=== PATIENT | female | born 1955 | race Caucasian/White ===

== ENCOUNTER 2019-03-25 10:49 | Outpatient (CLI) | payer OTHER, SELFPAY | END 2019-04-08 13:12 | disposition home or self-care (01) | LOC: PHYS 10:51 | PROVIDERS: PCP Family Medicine; Visit Provider Family Medicine | DX: R20.0 Anesthesia of skin (principal) | CPT/HCPCS: 95886; 95909 ==

== ENCOUNTER 2020-04-03 11:15 | Outpatient (RCR) | payer OTHER, SELFPAY ==
--- NOTE | 2020-03-06 17:43 | PT.OIE ---
Current Diagnoses Benign paroxysmal vertigo, unspecified ear (03/06/20) Pain in right shoulder (03/06/20) Stiffness of right shoulder, not elsewhere classified (03/06/20) Stiffness of left shoulder, not elsewhere classified (03/06/20) Stiffness of other specified joint, not elsewhere classified (03/06/20) Other spondylosis with radiculopathy, cervical region (03/06/20) Pain in right hand (03/06/20) Visit Care Team Role Provider Type Sumit Loera MD Primary Care Provider Physician Specialty: Family Practice Address: [address] [place] [address], [facility] [place], [address] Email: [email or web address] Daron Mosqueda DO Attending Provider Non-Staff Referring Provider Specialty: Neurology Address: [address] [place] [address], [id number] Email: Physical Therapy Initial Evaluation PT-OP-A Visit Information Start: 03/06/20 16:59 Freq: Status: Active Protocol: Document 03/06/20 11:15 DCW (Rec: 03/06/20 17:42 DCW [id number]) Out-Patient Physical Therapy Visit Information Visit Information Visit Type Initial Evaluation Visit Start Time 11:15 Visit Stop Time 12:00 Total Visit Minutes 45 Visit Number 1 Number of PARTS FACILITATOR Visits 0 Evaluation Information Evaluation Date 03/06/20 PT-OP-B Current Condition Start: 03/06/20 16:59 Freq: Status: Active Protocol: Document 03/06/20 11:15 DCW (Rec: 03/06/20 17:42 DCW [id number]) Current Condition History of Current Condition Onset Date 18 months Current Complaints neck pain and stiffness, radicular arm pain, dizziness History of Current Condition Pt is a 64 year old female presenting with an 18 month history of worsening arm pain, L>R, neck stiffness, and a long-standing history of vertigo. Pt reports that her right hand began to hurt 18 months ago, and she though she had injured her finger, but it is now sore in both shoulders and her neck, limiting her participation in daily activities. She has a lot of difficulty attempting to open jars, and performing any general neck range of motion. Pt notes constant numbness and tingling in her middle three left fingers, and spasming in her left forearm. Pt also admits her dizziness is associated with positional changes, and prevents her from bending down and cleaning under furniture. Prior Treatments and Tests Per pt's visit notes from at [facility], pt's C-spine MRI from 04/15/19 was reviewed, and showed multiple levels of degenerative changes...the C6-7 level is most symptomatic as her distribution of pain matches the C6-7 level. PT-OP-C Subjective Start: 03/06/20 16:59 Freq: Status: Active Protocol: Document 03/06/20 11:15 DCW (Rec: 03/06/20 17:42 DCW [id number]) OP-PT Subjective Patient Comments Patient Comments I had to order something from [employer] to open jars, because it is just painful and I can't laundry tub maker anything. Patient Questionnaires Neck Disability Index NDI Score = 24% Quick Dash- Upper Extremity Quick Dash UE Score 47.73% Quick Dash UE Impairment 40 to 59% Impaired (Score 40- 59) OP-PT Pain Assessment Pain Assessment Grid Paper Pain Assessment Grid Completed Yes Location Left Lateral Hand Intensity 4 Scale Used Numeric (0 - 10) Left Lower Arm Intensity 3 Scale Used Numeric (0 - 10) Left Posterior Neck Intensity 4 Scale Used Numeric (0 - 10) PT-OP-F Manual Assessment Start: 03/06/20 16:59 Freq: Status: Active Protocol: Document 03/06/20 11:15 DCW (Rec: 03/06/20 17:42 DCW [id number]) Manual Assessments Soft Tissue Assessment Soft Tissue Mobility Assessment Moderate tone and tenderness to palpation 3/4: wincing and withdraw - right suboccipitals , bilateral upper trap, bilateral cervical paraspinals , left brachioradialis, bilateral rhomboids. Joint Mobility Assessment Joint Mobility Assessment Degeneratige changes through the cervical spine have lead to decreased ROM and limited vertebral mobility PT-OP-K Range of Motion Start: 03/06/20 16:59 Freq: Status: Active Protocol: Document 03/06/20 11:15 DCW (Rec: 03/06/20 17:42 DCW [id number]) Cervical Spine Range of Motion Cervical Spine Active Degrees Testing Position Sitting Flexion 65 Extension 45 Rotation Left 60 Rotation Right 55 Lateral Flexion Left 20 Lateral Flexion Right 35 ROM Limitations Soft Tissue Tightness,Bony Restriction,Muscle Tone,Pain PT-OP-L Special Tests Start: 03/06/20 16:59 Freq: Status: Active Protocol: Document 03/06/20 11:15 DCW (Rec: 03/06/20 17:42 DCW [id number]) Special Tests Cervical Spine Special Tests Spurling's Test Test Results Negative Traction Test Results Negative Slump Test Results Negative Foraminal Compression Test Results Positive bilaterally PT-OP-M Strength Start: 03/06/20 16:59 Freq: Status: Active Protocol: Document 03/06/20 11:15 DCW (Rec: 03/06/20 17:42 DCW [id number]) Shoulder Strength Shoulder Manual Muscle Testing Right Flexion 4+ Good+ Abduction (C5) 4- Good- External Rotation 5 Normal Internal Rotation 5 Normal Left Flexion 4+ Good+ Abduction (C5) 3+ Fair+ External Rotation 4+ Good+ Internal Rotation 4+ Good+ Comments Limited secondary to pain Hand Mail Handler Assistant/Pinch Strength Hand Strength Right Mail Handler Assistant (lbs) 55.67 Comments Three-trial average (47, 60, 60) Left Mail Handler Assistant (lbs) 53.33 Comments Three-trial average (55, 50, 55) PT-OP-O Vestibular Start: 03/06/20 16:59 Freq: Status: Active Protocol: Document 03/06/20 11:15 DCW (Rec: 03/06/20 17:42 DCW [id number]) Vestibular Assessment Comments Vestibular Comments Not tested at this time PT-OP-T Assessment and Plan Start: 03/06/20 16:59 Freq: Status: Active Protocol: Document 03/06/20 11:15 DCW (Rec: 03/06/20 17:42 DCW [id number]) Physical Therapy Assessment Rehab Potential Rehabilitation Potential Good Evaluation Complexity Number of Personal Factors/Comorbidities 1-2 Number of Body Systems Impaired 3 Clinical Presentation at Evaluation Unstable Impairments Impairments Activity Tolerance,Functional Activities,Functional Mobility ,Pain,Posture,ROM,Soft Tissue Mobility,Strength,Tone Goals Four Impairment Pt unable to clean under chair due to positional vertigo Due Diligence Coordinator Goal (LTG) Pt to exhibit no symptoms of positional vertigo over a period of three weeks. LTG Duration 05/07/20 Three Impairment Pt displays decreased cervical ROM which limits her ability to turn head when driving [facility] Goal (LTG) Pt to increase cervical rotation to 65? bilaterally and lateral flexion to 45? bilaterally LTG Duration 05/07/20 Two Impairment Pt unable to open jars due to pain and laundry tub maker weakness Due Diligence Coordinator Goal (LTG) Pt to report ability to open jars at home with no instances of increased pain. 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 Additionally, per pt's subjective complaints , pt is suffering from positional vertigo, which will limit her ability to participate fully in cervical rehab. Pt's symptoms are suggestive of BPPV, however there was not sufficient time during her evaluation today for vestibular testing. Pt should benefit from further testing and treatment of potential vestibular dysfunction to assist improving her results from cervical therapy. Pt displays increased tone and tenderness along her cervical paraspinals, rhomboids, and upper traps, suggesting protective spasming secondary to her degeneration. Pt displays some decreased shoulder strength bilaterally and limitations in cervical ROM. Pt should benefit from skilled therapy focusing on decreasing tone, improving mobility, pain-control modalities, and vestibular testing/treatment to decrease positional vertigo. Physical Therapy Plan Frequency and Duration Frequency of Treatment 2x/Week Duration of Treatment 2 months Plan of Care Start Date 03/06/20 Plan of Care End Date 05/07/20 Therapeutic Interventions Therapeutic Interventions Canalithic Repositioning,Home Exercise Program,Joint Mobilizations,Manual Therapy, Neuromuscular Re-education, Patient/Caregiver Education, Self-Care/Home Management,Soft Tissue Mobilization, Therapeutic Activities, Therapeutic Exercises, Vestibular Rehabilitation Modalities Cold Pack/Ice Massage,Electric Stimulation,Hot Packs, Ultrasound Next Visit Focus/Plan Next Note Type Treatment Note Next Visit Plan Cervical ROM, vestibular testing, CRM as needed, strengthening, STM
--- NOTE | 2020-03-06 17:44 | PT.OPPOC ---
Physical, Occupational & Speech Therapy At [facility] Current Diagnoses Benign paroxysmal vertigo, unspecified ear (03/06/20) Pain in right shoulder (03/06/20) Stiffness of right shoulder, not elsewhere classified (03/06/20) Stiffness of left shoulder, not elsewhere classified (03/06/20) Stiffness of other specified joint, not elsewhere classified (03/06/20) Other spondylosis with radiculopathy, cervical region (03/06/20) Pain in right hand (03/06/20) Visit Care Team Role Provider Type Sumit Loera MD Primary Care Provider Physician Specialty: Family Practice Address: [address] [place] [address] [place], [address] Email: [email or web address] Daron Mosqueda DO Attending Provider Non-Staff Referring Provider Specialty: Neurology Address: [address] [place] [address], [address] Email: Plan Of Care PT-OP-T Assessment and Plan Start: 03/06/20 16:59 Freq: Status: Active Protocol: Document 03/06/20 11:15 DCW (Rec: 03/06/20 17:42 DCW [id number]) Physical Therapy Assessment Rehab Potential Rehabilitation Potential Good Evaluation Complexity Number of Personal Factors/Comorbidities 1-2 Number of Body Systems Impaired 3 Clinical Presentation at Evaluation Unstable Impairments Impairments Activity Tolerance,Functional Activities,Functional Mobility ,Pain,Posture,ROM,Soft Tissue Mobility,Strength,Tone Goals Four Impairment Pt unable to clean under chair due to positional vertigo Senior Living Goal (LTG) Pt to exhibit no symptoms of positional vertigo over a period of three weeks. LTG Duration 05/07/20 Three Impairment Pt displays decreased cervical ROM which limits head turns when driving Senior Living Goal (LTG) Pt to increase cervical rotation to 65? bilaterally and lateral flexion to 45? bilaterally LTG Duration 05/07/20 Two Impairment Pt unable to open jars due to pain and terrazzo mechanic helper weakness Stockkeeper Goal (LTG) Pt to report ability to open jars at home with no instances of increased pain. 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 Additionally, per pt's subjective complaints , pt is suffering from positional vertigo, which will limit her ability to participate fully in cervical rehab. Pt's symptoms are suggestive of BPPV, however there was not sufficient time during her evaluation today for vestibular testing. Pt should benefit from further testing and treatment of potential vestibular dysfunction to assist improving her results from cervical therapy. Pt displays increased tone and tenderness along her cervical paraspinals, rhomboids, and upper traps, suggesting protective spasming secondary to her degeneration. Pt displays some decreased shoulder strength bilaterally and limitations in cervical ROM. Pt should benefit from skilled therapy focusing on decreasing tone, improving mobility, pain-control modalities, and vestibular testing/treatment to decrease positional vertigo. Physical Therapy Plan Frequency and Duration Frequency of Treatment 2x/Week Duration of Treatment 2 months Plan of Care Start Date 03/06/20 Plan of Care End Date 05/07/20 Therapeutic Interventions Therapeutic Interventions Canalithic Repositioning,Home Exercise Program,Joint Mobilizations,Manual Therapy, Neuromuscular Re-education, Patient/Caregiver Education, Self-Care/Home Management,Soft Tissue Mobilization, Therapeutic Activities, Therapeutic Exercises, Vestibular Rehabilitation Modalities Cold Pack/Ice Massage,Electric Stimulation,Hot Packs, Ultrasound Next Visit Focus/Plan Next Note Type Treatment Note Next Visit Plan Cervical ROM, vestibular testing, CRM as needed, strengthening, STM Plan of Care Dates Plan of Care Start Date 03/06/20 Plan of Care End Date 05/07/20 Electronically Signed by: Trae Light, PT 03/06/20 1157 Please Sign and Return: I have reviewed this Plan of Care and certify that the skilled therapy services above are required to meet the patient?s needs. Physician Signature Date Printed Name and Credentials Clinical Instructor Signature Printed Name and Credentials
--- NOTE | 2020-03-08 16:20 | PT.OTN ---
Current Diagnoses Benign paroxysmal vertigo, unspecified ear (03/08/20) Pain in right shoulder (03/08/20) Stiffness of right shoulder, not elsewhere classified (03/08/20) Stiffness of left shoulder, not elsewhere classified (03/08/20) Stiffness of other specified joint, not elsewhere classified (03/08/20) Other spondylosis with radiculopathy, cervical region (03/08/20) Pain in right hand (03/08/20) Physical Therapy Treatment Note PT-OP-A Visit Information Start: 03/06/20 16:59 Freq: Status: Active Protocol: Document 03/08/20 16:03 AW (Rec: 03/08/20 16:20 AW [id number]) Out-Patient Physical Therapy Visit Information Visit Information Visit Type Treatment Note Visit Start Time 15:15 Visit Stop Time 16:00 Total Visit Minutes 45 Visit Number 2/3 Number of PATIENT OBSERVATION ASSISTANT Visits 0 Evaluation Information Evaluation Date 03/06/20 PT-OP-B Current Condition Start: 03/06/20 16:59 Freq: Status: Active Protocol: Document 03/06/20 11:15 DCW (Rec: 03/06/20 17:42 DCW [id number]) Current Condition History of Current Condition Onset Date 18 months Current Complaints neck pain and stiffness, radicular arm pain, dizziness History of Current Condition Pt is a 64 year old female presenting with an 18 month history of worsening arm pain, L>R, neck stiffness, and a long-standing history of vertigo. Pt reports that her right hand began to hurt 18 months ago, and she though she had injured her finger, but it is now sore in both shoulders and her neck, limiting her participation in daily activities. She has a lot of difficulty attempting to open jars, and performing any general neck range of motion. Pt notes constant numbness and tingling in her middle three left fingers, and spasming in her left forearm. Pt also admits her dizziness is associated with positional changes, and prevents her from bending down and cleaning under furniture. Prior Treatments and Tests Per pt's visit notes from at [facility], pt's C-spine MRI from 04/15/19 was reviewed, and showed multiple levels of degenerative changes...the C6-7 level is most symptomatic as her distribution of pain matches the C6-7 level. PT-OP-C Subjective Start: 03/06/20 16:59 Freq: Status: Active Protocol: Document 03/08/20 16:03 AW (Rec: 03/08/20 16:20 AW [id number]) OP-PT Subjective Patient Comments Patient Comments I'm feeling less tense today. It's one of my better days. PT-OP-F Manual Assessment Start: 03/06/20 16:59 Freq: Status: Active Protocol: Document 03/06/20 11:15 DCW (Rec: 03/06/20 17:42 DCW [id number]) Manual Assessments Soft Tissue Assessment Soft Tissue Mobility Assessment Moderate tone and tenderness to palpation 3/4: wincing and withdraw - right suboccipitals , bilateral upper trap, bilateral cervical paraspinals , left brachioradialis, bilateral rhomboids. Joint Mobility Assessment Joint Mobility Assessment Degeneratige changes through the cervical spine have lead to decreased ROM and limited vertebral mobility PT-OP-K Range of Motion Start: 03/06/20 16:59 Freq: Status: Active Protocol: Document 03/06/20 11:15 DCW (Rec: 03/06/20 17:42 DCW [id number]) Cervical Spine Range of Motion Cervical Spine Active Degrees Testing Position Sitting Flexion 65 Extension 45 Rotation Left 60 Rotation Right 55 Lateral Flexion Left 20 Lateral Flexion Right 35 ROM Limitations Soft Tissue Tightness,Bony Restriction,Muscle Tone,Pain PT-OP-L Special Tests Start: 03/06/20 16:59 Freq: Status: Active Protocol: Document 03/06/20 11:15 DCW (Rec: 03/06/20 17:42 DCW [id number]) Special Tests Cervical Spine Special Tests Spurling's Test Test Results Negative Traction Test Results Negative Slump Test Results Negative Foraminal Compression Test Results Positive bilaterally PT-OP-M Strength Start: 03/06/20 16:59 Freq: Status: Active Protocol: Document 03/06/20 11:15 DCW (Rec: 03/06/20 17:42 DCW [id number]) Shoulder Strength Shoulder Manual Muscle Testing Right Flexion 4+ Good+ Abduction (C5) 4- Good- External Rotation 5 Normal Internal Rotation 5 Normal Left Flexion 4+ Good+ Abduction (C5) 3+ Fair+ External Rotation 4+ Good+ Internal Rotation 4+ Good+ Comments Limited secondary to pain Hand Steward/Stewardess Tourist Class/Pinch Strength Hand Strength Right Steward/Stewardess Tourist Class (lbs) 55.67 Comments Three-trial average (47, 60, 60) Left Steward/Stewardess Tourist Class (lbs) 53.33 Comments Three-trial average (55, 50, 55) PT-OP-O Vestibular Start: 03/06/20 16:59 Freq: Status: Active Protocol: Document 03/06/20 11:15 DCW (Rec: 03/06/20 17:42 DCW [id number]) Vestibular Assessment Comments Vestibular Comments Not tested at this time PT-OP-Q Treatments Start: 03/06/20 16:59 Freq: Status: Active Protocol: Document 03/08/20 16:03 AW (Rec: 03/08/20 16:20 AW [id number]) Therapeutic Exercises Sitting Exercises iso lat dorsi Sitting Exercise Name iso lat dorsi Side bilateral Equipment Used K-MOTION Interactiveing poles Reps/Minutes 10 x 2 Comments with 3 SH, cues for elbows tucked to trunk scapular retraction Sitting Exercise Name scapular retraction Side bilateral Reps/Minutes x12 Comments pt requires tactile cues and modeling, VC for soft shoulders cervical retraction Sitting Exercise Name cervical retraction Reps/Minutes x12 Comments cues for soft shoulders cervical AROM Sitting Exercise Name all planes Comments limited flexion due to dizziness UT stretch Sitting Exercise Name UT stretch Side bilateral Resistance manual, self Reps/Minutes 30 SH x 4 Manual Therapy Treatment Soft Tissue Mobilization cervical Body Location paraspinals, subocc, UT, rhomboids Mobilization Type Myofascial Release,Sustained Pressure Intensity/Depth Moderate Body Position Hooklying Comments With active cervical rotation, over pressure, and contract/ relax. Plus manual traction. PT-OP-T Assessment and Plan Start: 03/06/20 16:59 Freq: Status: Active Protocol: Document 03/08/20 16:03 AW (Rec: 03/08/20 16:20 AW [id number]) Physical Therapy Assessment Impairments Impairments Activity Tolerance,Functional Activities,Functional Mobility ,Pain,Posture,ROM,Soft Tissue Mobility,Strength,Tone Goals Four Impairment Pt unable to clean under chair due to positional vertigo Venetian Blind Tape Cutter Goal (LTG) Pt to exhibit no symptoms of positional vertigo over a period of three weeks. LTG Duration 05/07/20 Three Impairment Pt displays decreased cervical ROM which limits head turns when driving [facility] Goal (LTG) Pt to increase cervical rotation to 65? bilaterally and lateral flexion to 45? bilaterally LTG Duration 05/07/20 Two Impairment Pt unable to open jars due to pain and grazing aide weakness [facility]entiary Goal (LTG) Pt to report ability to open jars at home with no instances of increased pain. LTG Duration 05/07/20 One Impairment Pt does not have an appropriate home exercise program Short Term Goal (STG) Pt to be independent and compliant with an appropriate HEP STG Duration 04/06/20 Assessment Summary Assessment Pt tolerated manual therapy and exercise today without increase in baseline radicular symptoms. Pt has dizziness with active cervical flexion and PT notes left-beating nystagmus. Symptoms cleared in <30 seconds. Physical Therapy Plan Frequency and Duration Frequency of Treatment 2x/Week Duration of Treatment 2 months Plan of Care Start Date 03/06/20 Plan of Care End Date 05/07/20 Therapeutic Interventions Therapeutic Interventions Canalithic Repositioning,Home Exercise Program,Joint Mobilizations,Manual Therapy, Neuromuscular Re-education, Patient/Caregiver Education, Self-Care/Home Management,Soft Tissue Mobilization, Therapeutic Activities, Therapeutic Exercises, Vestibular Rehabilitation Modalities Cold Pack/Ice Massage,Electric Stimulation,Hot Packs, Ultrasound Next Visit Focus/Plan Next Note Type Treatment Note Next Visit Plan Cervical ROM, vestibular testing, CRM as needed, strengthening, STM
--- NOTE | 2020-03-15 17:06 | PT.OTN ---
Current Diagnoses Benign paroxysmal vertigo, unspecified ear (03/15/20) Pain in right shoulder (03/15/20) Stiffness of right shoulder, not elsewhere classified (03/15/20) Stiffness of left shoulder, not elsewhere classified (03/15/20) Stiffness of other specified joint, not elsewhere classified (03/15/20) Other spondylosis with radiculopathy, cervical region (03/15/20) Pain in right hand (03/15/20) Physical Therapy Treatment Note PT-OP-A Visit Information Start: 03/06/20 16:59 Freq: Status: Active Protocol: Document 03/15/20 11:20 SAK (Rec: 03/15/20 13:12 SAK [id number]) Out-Patient Physical Therapy Visit Information Visit Information Visit Type Treatment Note Visit Start Time 11:15 Visit Stop Time 12:00 Total Visit Minutes 45 Visit Number 3/3 Number of DIRECTOR OF RETAIL MERCHANDISING Visits 0 Evaluation Information Evaluation Date 03/06/20 PT-OP-B Current Condition Start: 03/06/20 16:59 Freq: Status: Active Protocol: Document 03/06/20 11:15 DCW (Rec: 03/06/20 17:42 DCW [id number]) Current Condition History of Current Condition Onset Date 18 months Current Complaints neck pain and stiffness, radicular arm pain, dizziness History of Current Condition Pt is a 64 year old female presenting with an 18 month history of worsening arm pain, L>R, neck stiffness, and a long-standing history of vertigo. Pt reports that her right hand began to hurt 18 months ago, and she though she had injured her finger, but it is now sore in both shoulders and her neck, limiting her participation in daily activities. She has a lot of difficulty attempting to open jars, and performing any general neck range of motion. Pt notes constant numbness and tingling in her middle three left fingers, and spasming in her left forearm. Pt also admits her dizziness is associated with positional changes, and prevents her from bending down and cleaning under furniture. Prior Treatments and Tests Per pt's visit notes from at [facility], pt's C-spine MRI from 04/15/19 was reviewed, and showed multiple levels of degenerative changes...the C6-7 level is most symptomatic as her distribution of pain matches the C6-7 level. PT-OP-C Subjective Start: 03/06/20 16:59 Freq: Status: Active Protocol: Document 03/15/20 11:20 SAK (Rec: 03/15/20 13:12 SAK [id number]) OP-PT Subjective Patient Comments Patient Comments Low compliance with HEP due to holidays, significant other home. Again having one of her better days. PT-OP-F Manual Assessment Start: 03/06/20 16:59 Freq: Status: Active Protocol: Document 03/06/20 11:15 DCW (Rec: 03/06/20 17:42 DCW [id number]) Manual Assessments Soft Tissue Assessment Soft Tissue Mobility Assessment Moderate tone and tenderness to palpation 3/4: wincing and withdraw - right suboccipitals , bilateral upper trap, bilateral cervical paraspinals , left brachioradialis, bilateral rhomboids. Joint Mobility Assessment Joint Mobility Assessment Degeneratige changes through the cervical spine have lead to decreased ROM and limited vertebral mobility PT-OP-K Range of Motion Start: 03/06/20 16:59 Freq: Status: Active Protocol: Document 03/06/20 11:15 DCW (Rec: 03/06/20 17:42 DCW [id number]) Cervical Spine Range of Motion Cervical Spine Active Degrees Testing Position Sitting Flexion 65 Extension 45 Rotation Left 60 Rotation Right 55 Lateral Flexion Left 20 Lateral Flexion Right 35 ROM Limitations Soft Tissue Tightness,Bony Restriction,Muscle Tone,Pain PT-OP-L Special Tests Start: 03/06/20 16:59 Freq: Status: Active Protocol: Document 03/06/20 11:15 DCW (Rec: 03/06/20 17:42 DCW [id number]) Special Tests Cervical Spine Special Tests Spurling's Test Test Results Negative Traction Test Results Negative Slump Test Results Negative Foraminal Compression Test Results Positive bilaterally PT-OP-M Strength Start: 03/06/20 16:59 Freq: Status: Active Protocol: Document 03/06/20 11:15 DCW (Rec: 03/06/20 17:42 DCW [id number]) Shoulder Strength Shoulder Manual Muscle Testing Right Flexion 4+ Good+ Abduction (C5) 4- Good- External Rotation 5 Normal Internal Rotation 5 Normal Left Flexion 4+ Good+ Abduction (C5) 3+ Fair+ External Rotation 4+ Good+ Internal Rotation 4+ Good+ Comments Limited secondary to pain Hand Packing Floor Worker/Pinch Strength Hand Strength Right Packing Floor Worker (lbs) 55.67 Comments Three-trial average (47, 60, 60) Left Packing Floor Worker (lbs) 53.33 Comments Three-trial average (55, 50, 55) PT-OP-O Vestibular Start: 03/06/20 16:59 Freq: Status: Active Protocol: Document 03/06/20 11:15 DCW (Rec: 03/06/20 17:42 DCW [id number]) Vestibular Assessment Comments Vestibular Comments Not tested at this time PT-OP-Q Treatments Start: 03/06/20 16:59 Freq: Status: Active Protocol: Document 03/15/20 11:20 SAK (Rec: 03/15/20 13:12 SAK [id number]) Therapeutic Exercises Supine Exercises pec stretch Reps/Minutes 2x30 Sitting Exercises scapular retraction Sitting Exercise Name scapular retraction Side bilateral Reps/Minutes x12 Comments pt requires tactile cues and modeling, VC for soft shoulders cervical retraction Sitting Exercise Name cervical retraction Reps/Minutes x12 Comments cues for soft shoulders cervical AROM Sitting Exercise Name all planes Comments limited flexion due to dizziness UT stretch Sitting Exercise Name UT stretch Side bilateral Resistance manual, self Reps/Minutes 30 SH x 2 Manual Therapy Treatment Soft Tissue Mobilization cervical Body Location paraspinals, subocc, UT, rhomboids Mobilization Type Myofascial Release,Sustained Pressure Intensity/Depth Moderate Body Position Hooklying and sidelying Comments With active cervical rotation, over pressure, and contract/ relax. Plus manual traction. PT-OP-T Assessment and Plan Start: 03/06/20 16:59 Freq: Status: Active Protocol: Document 03/15/20 11:20 SAK (Rec: 03/15/20 17:06 [facility] [id number]) Physical Therapy Assessment Impairments Impairments Activity Tolerance,Functional Activities,Functional Mobility ,Pain,Posture,ROM,Soft Tissue Mobility,Strength,Tone Goals Four Impairment Pt unable to clean under chair due to positional vertigo Correction Goal (LTG) Pt to exhibit no symptoms of positional vertigo over a period of three weeks. LTG Duration 05/07/20 Three Impairment Pt displays decreased cervical ROM which limits head turns when driving Topography Technician Goal (LTG) Pt to increase cervical rotation to 65? bilaterally and lateral flexion to 45? bilaterally LTG Duration 05/07/20 Two Impairment Pt unable to open jars due to pain and cable respooler weakness Topography Technician Goal (LTG) Pt to report ability to open jars at home with no instances of increased pain. LTG Duration 05/07/20 One Impairment Pt does not have an appropriate home exercise program Short Term Goal (STG) Pt to be independent and compliant with an appropriate HEP STG Duration 04/06/20 Assessment Summary Assessment Good tolerance for ther ex with verbal and manual cues for correct performance. Decreased pain and muscle tension with manual techniques . Overall pain improved, vertigo symptoms continue especially with supine to sit today. Physical Therapy Plan Frequency and Duration Frequency of Treatment 2x/Week Duration of Treatment 2 months Plan of Care Start Date 03/06/20 Plan of Care End Date 05/07/20 Therapeutic Interventions Therapeutic Interventions Canalithic Repositioning,Home Exercise Program,Joint Mobilizations,Manual Therapy, Neuromuscular Re-education, Patient/Caregiver Education, Self-Care/Home Management,Soft Tissue Mobilization, Therapeutic Activities, Therapeutic Exercises, Vestibular Rehabilitation Modalities Cold Pack/Ice Massage,Electric Stimulation,Hot Packs, Ultrasound Next Visit Focus/Plan Next Note Type Treatment Note Next Visit Plan Cervical ROM, vestibular testing, CRM as needed, strengthening, STM
--- NOTE | 2020-03-29 11:57 | PT.OTN ---
Current Diagnoses Benign paroxysmal vertigo, unspecified ear (03/29/20) Pain in right shoulder (03/29/20) Stiffness of right shoulder, not elsewhere classified (03/29/20) Stiffness of left shoulder, not elsewhere classified (03/29/20) Stiffness of other specified joint, not elsewhere classified (03/29/20) Other spondylosis with radiculopathy, cervical region (03/29/20) Pain in right hand (03/29/20) Physical Therapy Treatment Note PT-OP-A Visit Information Start: 03/06/20 16:59 Freq: Status: Active Protocol: Document 03/29/20 11:15 DCW (Rec: 03/29/20 11:57 DCW [id number]) Out-Patient Physical Therapy Visit Information Visit Information Visit Type Treatment Note Visit Start Time 11:15 Visit Stop Time 12:00 Total Visit Minutes 45 Visit Number 4/5 Number of STEEL CRANE OPERATOR Visits 0 Evaluation Information Evaluation Date 03/06/20 PT-OP-B Current Condition Start: 03/06/20 16:59 Freq: Status: Active Protocol: Document 03/06/20 11:15 DCW (Rec: 03/06/20 17:42 DCW [id number]) Current Condition History of Current Condition Onset Date 18 months Current Complaints neck pain and stiffness, radicular arm pain, dizziness History of Current Condition Pt is a 64 year old female presenting with an 18 month history of worsening arm pain, L>R, neck stiffness, and a long-standing history of vertigo. Pt reports that her right hand began to hurt 18 months ago, and she though she had injured her finger, but it is now sore in both shoulders and her neck, limiting her participation in daily activities. She has a lot of difficulty attempting to open jars, and performing any general neck range of motion. Pt notes constant numbness and tingling in her middle three left fingers, and spasming in her left forearm. Pt also admits her dizziness is associated with positional changes, and prevents her from bending down and cleaning under furniture. Prior Treatments and Tests Per pt's visit notes from at [facility], pt's C-spine MRI from 04/15/19 was reviewed, and showed multiple levels of degenerative changes...the C6-7 level is most symptomatic as her distribution of pain matches the C6-7 level. PT-OP-C Subjective Start: 03/06/20 16:59 Freq: Status: Active Protocol: Document 03/29/20 11:15 DCW (Rec: 03/29/20 11:57 DCW [id number]) OP-PT Subjective Patient Comments Patient Comments Pt reports she has been feeling better recently, and has been doing well with her HEP. PT-OP-F Manual Assessment Start: 03/06/20 16:59 Freq: Status: Active Protocol: Document 03/06/20 11:15 DCW (Rec: 03/06/20 17:42 DCW [id number]) Manual Assessments Soft Tissue Assessment Soft Tissue Mobility Assessment Moderate tone and tenderness to palpation 3/4: wincing and withdraw - right suboccipitals , bilateral upper trap, bilateral cervical paraspinals , left brachioradialis, bilateral rhomboids. Joint Mobility Assessment Joint Mobility Assessment Degeneratige changes through the cervical spine have lead to decreased ROM and limited vertebral mobility PT-OP-K Range of Motion Start: 03/06/20 16:59 Freq: Status: Active Protocol: Document 03/06/20 11:15 DCW (Rec: 03/06/20 17:42 DCW [id number]) Cervical Spine Range of Motion Cervical Spine Active Degrees Testing Position Sitting Flexion 65 Extension 45 Rotation Left 60 Rotation Right 55 Lateral Flexion Left 20 Lateral Flexion Right 35 ROM Limitations Soft Tissue Tightness,Bony Restriction,Muscle Tone,Pain PT-OP-L Special Tests Start: 03/06/20 16:59 Freq: Status: Active Protocol: Document 03/06/20 11:15 DCW (Rec: 03/06/20 17:42 DCW [id number]) Special Tests Cervical Spine Special Tests Spurling's Test Test Results Negative Traction Test Results Negative Slump Test Results Negative Foraminal Compression Test Results Positive bilaterally PT-OP-M Strength Start: 03/06/20 16:59 Freq: Status: Active Protocol: Document 03/06/20 11:15 DCW (Rec: 03/06/20 17:42 DCW [id number]) Shoulder Strength Shoulder Manual Muscle Testing Right Flexion 4+ Good+ Abduction (C5) 4- Good- External Rotation 5 Normal Internal Rotation 5 Normal Left Flexion 4+ Good+ Abduction (C5) 3+ Fair+ External Rotation 4+ Good+ Internal Rotation 4+ Good+ Comments Limited secondary to pain Hand Supervisor Grading/Pinch Strength Hand Strength Right Supervisor Grading (lbs) 55.67 Comments Three-trial average (47, 60, 60) Left Supervisor Grading (lbs) 53.33 Comments Three-trial average (55, 50, 55) PT-OP-O Vestibular Start: 03/06/20 16:59 Freq: Status: Active Protocol: Document 03/29/20 11:15 DCW (Rec: 03/29/20 11:25 DCW [id number]) Vestibular Assessment Positional Testing [place]-Hallpike Negative Left,Negative Right Rolling Test Negative Left,Negative Right PT-OP-Q Treatments Start: 03/06/20 16:59 Freq: Status: Active Protocol: Document 03/29/20 11:15 DCW (Rec: 03/29/20 11:57 DCW [id number]) Therapeutic Exercises Sitting Exercises scapular retraction Sitting Exercise Name scapular retraction Side bilateral Reps/Minutes x12 Comments pt requires tactile cues and modeling, VC for soft shoulders cervical retraction Sitting Exercise Name cervical retraction Reps/Minutes x12 Comments cues for soft shoulders UT stretch Sitting Exercise Name UT stretch Side bilateral Resistance manual, self Reps/Minutes 30 SH x 2 Manual Therapy Treatment Soft Tissue Mobilization cervical Body Location paraspinals, subocc, UT, rhomboids Mobilization Type Myofascial Release,Sustained Pressure Intensity/Depth Moderate Body Position Hooklying and sidelying Comments With active cervical rotation, over pressure, and contract/ relax. Plus manual traction. Other Other Manual Treatments Positional testing PT-OP-T Assessment and Plan Start: 03/06/20 16:59 Freq: Status: Active Protocol: Document 03/29/20 11:15 DCW (Rec: 03/29/20 11:57 DCW [id number]) Physical Therapy Assessment Impairments Impairments Activity Tolerance,Functional Activities,Functional Mobility ,Pain,Posture,ROM,Soft Tissue Mobility,Strength,Tone Goals Four Impairment Pt unable to clean under chair due to positional vertigo Play Back Operator Goal (LTG) Pt to exhibit no symptoms of positional vertigo over a period of three weeks. LTG Duration 05/07/20 Three Impairment Pt displays decreased cervical ROM which limits head turns when driving Skilled Nursing Goal (LTG) Pt to increase cervical rotation to 65? bilaterally and lateral flexion to 45? bilaterally LTG Duration 05/07/20 Two Impairment Pt unable to open jars due to pain and human resources vice president weakness Skilled Nursing Goal (LTG) Pt to report ability to open jars at home with no instances of increased pain. LTG Duration 05/07/20 One Impairment Pt does not have an appropriate home exercise program Short Term Goal (STG) Pt to be independent and compliant with an appropriate HEP STG Duration 04/06/20 Assessment Summary Assessment No positional testing was positive at the moment, pt reports her dizziness has not been as frequent recently. Pt tolerated STM/Manual therapy well, showing improvement with overall cervical ROM. Physical Therapy Plan Frequency and Duration Frequency of Treatment 2x/Week Duration of Treatment 2 months Plan of Care Start Date 03/06/20 Plan of Care End Date 05/07/20 Therapeutic Interventions Therapeutic Interventions Canalithic Repositioning,Home Exercise Program,Joint Mobilizations,Manual Therapy, Neuromuscular Re-education, Patient/Caregiver Education, Self-Care/Home Management,Soft Tissue Mobilization, Therapeutic Activities, Therapeutic Exercises, Vestibular Rehabilitation Modalities Cold Pack/Ice Massage,Electric Stimulation,Hot Packs, Ultrasound Next Visit Focus/Plan Next Note Type Treatment Note Next Visit Plan Cervical ROM, vestibular testing, CRM as needed, strengthening, STM
--- NOTE | 2020-04-03 12:00 | PT.OTN ---
Current Diagnoses Benign paroxysmal vertigo, unspecified ear (04/03/20) Pain in right shoulder (04/03/20) Stiffness of right shoulder, not elsewhere classified (04/03/20) Stiffness of left shoulder, not elsewhere classified (04/03/20) Stiffness of other specified joint, not elsewhere classified (04/03/20) Other spondylosis with radiculopathy, cervical region (04/03/20) Pain in right hand (04/03/20) Physical Therapy Treatment Note PT-OP-A Visit Information Start: 03/06/20 16:59 Freq: Status: Active Protocol: Document 04/03/20 11:15 DCW (Rec: 04/03/20 11:59 DCW [id number]) Out-Patient Physical Therapy Visit Information Visit Information Visit Type Treatment Note Visit Start Time 11:15 Visit Stop Time 12:00 Total Visit Minutes 45 Visit Number 5/5 Number of CORPORATE ACCOUNT EXECUTIVE Visits 0 Evaluation Information Evaluation Date 03/06/20 PT-OP-B Current Condition Start: 03/06/20 16:59 Freq: Status: Active Protocol: Document 03/06/20 11:15 DCW (Rec: 03/06/20 17:42 DCW [id number]) Current Condition History of Current Condition Onset Date 18 months Current Complaints neck pain and stiffness, radicular arm pain, dizziness History of Current Condition Pt is a 64 year old female presenting with an 18 month history of worsening arm pain, L>R, neck stiffness, and a long-standing history of vertigo. Pt reports that her right hand began to hurt 18 months ago, and she though she had injured her finger, but it is now sore in both shoulders and her neck, limiting her participation in daily activities. She has a lot of difficulty attempting to open jars, and performing any general neck range of motion. Pt notes constant numbness and tingling in her middle three left fingers, and spasming in her left forearm. Pt also admits her dizziness is associated with positional changes, and prevents her from bending down and cleaning under furniture. Prior Treatments and Tests Per pt's visit notes from at [facility], pt's C-spine MRI from 04/15/19 was reviewed, and showed multiple levels of degenerative changes...the C6-7 level is most symptomatic as her distribution of pain matches the C6-7 level. PT-OP-C Subjective Start: 03/06/20 16:59 Freq: Status: Active Protocol: Document 04/03/20 11:15 DCW (Rec: 04/03/20 11:59 DCW [id number]) OP-PT Subjective Patient Comments Patient Comments Pt doing better, but feels she has a long way to go. PT-OP-F Manual Assessment Start: 03/06/20 16:59 Freq: Status: Active Protocol: Document 03/06/20 11:15 DCW (Rec: 03/06/20 17:42 DCW [id number]) Manual Assessments Soft Tissue Assessment Soft Tissue Mobility Assessment Moderate tone and tenderness to palpation 3/4: wincing and withdraw - right suboccipitals , bilateral upper trap, bilateral cervical paraspinals , left brachioradialis, bilateral rhomboids. Joint Mobility Assessment Joint Mobility Assessment Degeneratige changes through the cervical spine have lead to decreased ROM and limited vertebral mobility PT-OP-K Range of Motion Start: 03/06/20 16:59 Freq: Status: Active Protocol: Document 04/03/20 11:15 DCW (Rec: 04/03/20 12:00 DCW [id number]) Cervical Spine Range of Motion Cervical Spine Active Degrees Testing Position Sitting Flexion 75 Extension 50 Rotation Left 80 Rotation Right 66 Lateral Flexion Left 35 Lateral Flexion Right 43 PT-OP-L Special Tests Start: 03/06/20 16:59 Freq: Status: Active Protocol: Document 03/06/20 11:15 DCW (Rec: 03/06/20 17:42 DCW [id number]) Special Tests Cervical Spine Special Tests Spurling's Test Test Results Negative Traction Test Results Negative Slump Test Results Negative Foraminal Compression Test Results Positive bilaterally PT-OP-M Strength Start: 03/06/20 16:59 Freq: Status: Active Protocol: Document 03/06/20 11:15 DCW (Rec: 03/06/20 17:42 DCW [id number]) Shoulder Strength Shoulder Manual Muscle Testing Right Flexion 4+ Good+ Abduction (C5) 4- Good- External Rotation 5 Normal Internal Rotation 5 Normal Left Flexion 4+ Good+ Abduction (C5) 3+ Fair+ External Rotation 4+ Good+ Internal Rotation 4+ Good+ Comments Limited secondary to pain Hand Steel Erector Apprentice/Pinch Strength Hand Strength Right Steel Erector Apprentice (lbs) 55.67 Comments Three-trial average (47, 60, 60) Left Steel Erector Apprentice (lbs) 53.33 Comments Three-trial average (55, 50, 55) PT-OP-O Vestibular Start: 03/06/20 16:59 Freq: Status: Active Protocol: Document 03/29/20 11:15 DCW (Rec: 03/29/20 11:25 DCW [id number]) Vestibular Assessment Positional Testing [place]-Hallpike Negative Left,Negative Right Rolling Test Negative Left,Negative Right PT-OP-Q Treatments Start: 03/06/20 16:59 Freq: Status: Active Protocol: Document 04/03/20 11:15 DCW (Rec: 04/03/20 11:59 DCW [id number]) Therapeutic Exercises Sitting Exercises scapular retraction Sitting Exercise Name scapular retraction Side bilateral Reps/Minutes x12 Comments pt requires tactile cues and modeling, VC for soft shoulders cervical retraction Sitting Exercise Name cervical retraction Reps/Minutes x12 Comments cues for soft shoulders UT stretch Sitting Exercise Name UT stretch Side bilateral Resistance manual, self Reps/Minutes 30 SH x 2 Manual Therapy Treatment Soft Tissue Mobilization cervical Body Location paraspinals, subocc, UT, rhomboids Mobilization Type Myofascial Release,Sustained Pressure Intensity/Depth Moderate Body Position Hooklying and sidelying Comments With active cervical rotation, over pressure, and contract/ relax. Plus manual traction. PT-OP-T Assessment and Plan Start: 03/06/20 16:59 Freq: Status: Active Protocol: Document 04/03/20 11:15 DCW (Rec: 04/03/20 11:59 DCW [id number]) Physical Therapy Assessment Assessment Summary Assessment Pt cervical ROM has progressed very well since initial evaluation, making gains in all planes. Recommend continued skilled therapy, although this will be pending insurance authorization, per patient. Physical Therapy Plan Frequency and Duration Frequency of Treatment 2x/Week Duration of Treatment 2 months Plan of Care Start Date 03/06/20 Plan of Care End Date 05/07/20 Therapeutic Interventions Therapeutic Interventions Canalithic Repositioning,Home Exercise Program,Joint Mobilizations,Manual Therapy, Neuromuscular Re-education, Patient/Caregiver Education, Self-Care/Home Management,Soft Tissue Mobilization, Therapeutic Activities, Therapeutic Exercises, Vestibular Rehabilitation Modalities Cold Pack/Ice Massage,Electric Stimulation,Hot Packs, Ultrasound Next Visit Focus/Plan Next Note Type Treatment Note Next Visit Plan Cervical ROM, vestibular testing, CRM as needed, strengthening, STM
--- NOTE | 2020-04-05 09:30 | PT.OPDS ---
Current Diagnoses Benign paroxysmal vertigo, unspecified ear (04/03/20) Pain in right shoulder (04/03/20) Stiffness of right shoulder, not elsewhere classified (04/03/20) Stiffness of left shoulder, not elsewhere classified (04/03/20) Stiffness of other specified joint, not elsewhere classified (04/03/20) Other spondylosis with radiculopathy, cervical region (04/03/20) Pain in right hand (04/03/20) Visit Care Team Role Provider Type Sumit Loera MD Primary Care Provider Physician Specialty: Family Practice Address: [address] [place] [address], [address], [place], [address] Email: [email or web address] Daron Mosqueda DO Attending Provider Non-Staff Referring Provider Specialty: Neurology Address: [address] [place] [address], [id number] Email: Visit Number Visit Number 07/19 Discharge Summary PT-OP-B Current Condition Start: 03/06/20 16:59 Freq: Status: Active Protocol: Document 03/06/20 11:15 DCW (Rec: 03/06/20 17:42 DCW [id number]) Current Condition History of Current Condition Onset Date 18 months Current Complaints neck pain and stiffness, radicular arm pain, dizziness History of Current Condition Pt is a 64 year old female presenting with an 18 month history of worsening arm pain, L>R, neck stiffness, and a long-standing history of vertigo. Pt reports that her right hand began to hurt 18 months ago, and she though she had injured her finger, but it is now sore in both shoulders and her neck, limiting her participation in daily activities. She has a lot of difficulty attempting to open jars, and performing any general neck range of motion. Pt notes constant numbness and tingling in her middle three left fingers, and spasming in her left forearm. Pt also admits her dizziness is associated with positional changes, and prevents her from bending down and cleaning under furniture. Prior Treatments and Tests Per pt's visit notes from at [facility], pt's C-spine MRI from 04/15/19 was reviewed, and showed multiple levels of degenerative changes...the C6-7 level is most symptomatic as her distribution of pain matches the C6-7 level. PT-OP-C Subjective Start: 03/06/20 16:59 Freq: Status: Active Protocol: Document 04/03/20 11:15 DCW (Rec: 04/03/20 11:59 DCW [id number]) OP-PT Subjective Patient Comments Patient Comments Pt doing better, but feels she has a long way to go. PT-OP-F Manual Assessment Start: 03/06/20 16:59 Freq: Status: Active Protocol: Document 03/06/20 11:15 DCW (Rec: 03/06/20 17:42 DCW [id number]) Manual Assessments Soft Tissue Assessment Soft Tissue Mobility Assessment Moderate tone and tenderness to palpation 3/4: wincing and withdraw - right suboccipitals , bilateral upper trap, bilateral cervical paraspinals , left brachioradialis, bilateral rhomboids. Joint Mobility Assessment Joint Mobility Assessment Degeneratige changes through the cervical spine have lead to decreased ROM and limited vertebral mobility PT-OP-K Range of Motion Start: 03/06/20 16:59 Freq: Status: Active Protocol: Document 04/03/20 11:15 DCW (Rec: 04/03/20 12:00 DCW [id number]) Cervical Spine Range of Motion Cervical Spine Active Degrees Testing Position Sitting Flexion 75 Extension 50 Rotation Left 80 Rotation Right 66 Lateral Flexion Left 35 Lateral Flexion Right 43 PT-OP-L Special Tests Start: 03/06/20 16:59 Freq: Status: Active Protocol: Document 03/06/20 11:15 DCW (Rec: 03/06/20 17:42 DCW [id number]) Special Tests Cervical Spine Special Tests Spurling's Test Test Results Negative Traction Test Results Negative Slump Test Results Negative Foraminal Compression Test Results Positive bilaterally PT-OP-M Strength Start: 03/06/20 16:59 Freq: Status: Active Protocol: Document 03/06/20 11:15 DCW (Rec: 03/06/20 17:42 DCW [id number]) Shoulder Strength Shoulder Manual Muscle Testing Right Flexion 4+ Good+ Abduction (C5) 4- Good- External Rotation 5 Normal Internal Rotation 5 Normal Left Flexion 4+ Good+ Abduction (C5) 3+ Fair+ External Rotation 4+ Good+ Internal Rotation 4+ Good+ Comments Limited secondary to pain Hand Box Estimator/Pinch Strength Hand Strength Right Box Estimator (lbs) 55.67 Comments Three-trial average (47, 60, 60) Left Box Estimator (lbs) 53.33 Comments Three-trial average (55, 50, 55) PT-OP-O Vestibular Start: 03/06/20 16:59 Freq: Status: Active Protocol: Document 03/29/20 11:15 DCW (Rec: 03/29/20 11:25 DCW [id number]) Vestibular Assessment Positional Testing Quinton-Hallpike Negative Left,Negative Right Rolling Test Negative Left,Negative Right PT-OP-T Assessment and Plan Start: 03/06/20 16:59 Freq: Status: Active Protocol: Document 04/05/20 09:29 DCW (Rec: 04/05/20 09:30 DCW [id number]) Physical Therapy Assessment Assessment Summary Assessment Pt requested discharge from skilled PT, notes she will be having surgery. Pt will require a new referral in order to return. Pt will be discharged at this time. Physical Therapy Plan Frequency and Duration Frequency of Treatment 2x/Week Duration of Treatment 2 months Plan of Care Start Date 03/06/20 Plan of Care End Date 05/07/20 Therapeutic Interventions Therapeutic Interventions Canalithic Repositioning,Home Exercise Program,Joint Mobilizations,Manual Therapy, Neuromuscular Re-education, Patient/Caregiver Education, Self-Care/Home Management,Soft Tissue Mobilization, Therapeutic Activities, Therapeutic Exercises, Vestibular Rehabilitation Modalities Cold Pack/Ice Massage,Electric Stimulation,Hot Packs, Ultrasound Discharge Physical Therapy Discharge Reasons Patient Request Next Visit Focus/Plan Next Note Type Discharge Summary
== END 2020-04-06 08:28 | disposition home or self-care (01) ==
LOC: PHYS 11:15
PROVIDERS: PCP Family Medicine; Referring Provider Neurological Surgery; Visit Provider Neurological Surgery
DX: M47.22 Other spondylosis with radiculopathy, cervical region (principal); M25.611 Stiffness of right shoulder, not elsewhere classified; M25.612 Stiffness of left shoulder, not elsewhere classified; M25.69 Stiffness of other specified joint, not elsewhere classified; M25.511 Pain in right shoulder; M79.641 Pain in right hand; H81.10 Benign paroxysmal vertigo, unspecified ear
CPT/HCPCS: 97110; 97140; 97162

== ENCOUNTER → 2020-04-13 10:00 | Outpatient (CLI) | payer MEDICARE, SELFPAY ==
[2020-04-13] MEDS: COVID-19 VACC #1, MRNA(MOD) 100 MCG/0.5 ML VIAL IM (10:05)
== END ==
PROVIDERS: Visit Provider Internal Medicine
DX: Z23 Encounter for immunization (principal)
CPT/HCPCS: 0011A; 91301

== ENCOUNTER → 2020-05-11 09:55 | Outpatient (CLI) | payer MEDICARE, SELFPAY ==
[2020-05-11] MEDS: COVID-19 VACC #2, MRNA(MOD) 100 MCG/0.5 ML VIAL IM (10:00)
== END ==
PROVIDERS: Visit Provider Internal Medicine
DX: Z23 Encounter for immunization (principal)
CPT/HCPCS: 0012A; 91301

== ENCOUNTER → 2020-07-03 13:19 | Outpatient (CLI) | payer OTHER, SELFPAY ==
--- NOTE | 2020-07-03 13:43 | DI.RAD.S_ITS ---
PROCEDURE: XR CERVICAL SPINE 1V INDICATIONS: NECK PAIN TECHNIQUE: Single lateral view of the cervical spine acquired. COMPARISON: None. FINDINGS: Bones: No fractures or dislocations to the T1 level. No suspicious bony lesions. Prior spine fusion procedure with anterior cervical plate and interbody disc spacer crossing C6-C7. Soft tissues: No prevertebral soft tissue swelling. IMPRESSION: Single lateral view shows expected postoperative appearance after anterior fusion procedure C6-C7. No subluxation associated. Dictated by: Miguel Morales M.D. on 07/03/2020 at 14:05 Approved by: Miguel Morales M.D. on 07/03/2020 at 14:06
== END ==
PROVIDERS: PCP Family Medicine; Referring Provider Neurological Surgery; Visit Provider Neurological Surgery
DX: M47.22 Other spondylosis with radiculopathy, cervical region (principal); M54.2 Cervicalgia; Z98.1 Arthrodesis status
CPT/HCPCS: 72020

== ENCOUNTER → 2020-08-31 09:18 | Outpatient (CLI) | payer OTHER, SELFPAY ==
--- NOTE | 2020-08-31 | DI.RAD.S_ITS ---
PROCEDURE: XR CERVICAL SPINE 1V INDICATIONS: Other spondylosis with radiculopathy, cervical region TECHNIQUE: Single lateral view of the cervical spine acquired. COMPARISON: [facility], , XR CERVICAL SPINE 1V, 07/03/2020, 13:46. FINDINGS: Bones: Straightening of the normal lordotic curvature. No acute fracture identified. Multilevel degenerative endplate sclerosis and spurring. Diffuse facet arthropathy. Diffuse mild to moderate disc space narrowing. C6-C7 ACDF in unchanged alignment. Soft tissues: No prevertebral soft tissue swelling. IMPRESSION: Spondylitic and postsurgical sequela, without interval change since 07/03/20. Dictated by: Norbert Rios M.D. on 08/31/2020 at 10:51 Approved by: Norbert Rios M.D. on 08/31/2020 at 10:53
== END ==
PROVIDERS: PCP Family Medicine; Referring Provider Neurological Surgery; Visit Provider Neurological Surgery
DX: M47.22 Other spondylosis with radiculopathy, cervical region (principal); Z98.1 Arthrodesis status
CPT/HCPCS: 72020

== ENCOUNTER 2020-10-27 12:30 | Outpatient (RCR) | payer OTHER, SELFPAY ==
--- NOTE | 2020-10-09 10:56 | OT.OP.EVAL ---
Visit Care Team Role Provider Type Paramjit Fenton MD Primary Care Provider Physician Specialty: Family Practice Address: [address], [place], [address] Email: [email or web address] Daron Mosqueda DO Attending Provider Non-Staff Referring Provider Specialty: Neurology Address: [address], [place], [address] Email: Occupational Therapy Initial Evaluation OT Outpatient Adult Evaluation Start: 10/09/20 10:26 Freq: Status: Active Protocol: Document 10/09/20 10:26 AMS (Rec: 10/09/20 10:56 AMS [id number]) General Information Visit Start Time 08:30 Visit Stop Time 09:15 Total Visit Minutes 45 Plan of Care Dates 10/09/20-12/04/20 Insurance Information [employer]vantage; pre -auth req thru [employer]; SEE INSURANCE NOTES Treatment Setting Outpatient Care Note Type Initial Evaluation Goals Senior Living Goals 1. Aida will be modified independent with L hand home exercise program utilizing provided written and visual instructions from therapist. 2. Aida will present with increased functional abilities of the L hand; this will be evidenced by verbal report of ability to open items on daily basis with use of the left hand and thus, patient will demonstrate decreased reliance on others to open items. 3. Aida will average 8.1+ or more pounds of force w/ L tip pinch strength testing. Assessment/Plan Treatment Assessment Aida is a 65 year-old right hand dominant female referred to outpatient OT for left hand strengthening exercises by Daron Mosqueda DO, w/ h/o recent C6- 7 ACDR. PMH: Significant for blood pressure concerns; surgery; mallet injury R 3rd digit Patient Goals: Increase strength of the left hand; address gripping abilities to reduce need for assistance w/ opening items Evaluation Findings: Impaired sensation reported of L thumb , 2nd and 3rd digits which is inconsistent w/ presentation. QuickDASH UE Outcome Measure Score = 20.45. 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 Avg 43. 0# of force w/ L paper mill supervisor w/ dynamometer II strength testing which is slightly below mean for 65-69 year-old females (41.0# +/- 8.2#). Avg 12.3# of force w/ L roberts pinch w/ pinchometer strength testing which is slightly below the mean for 65-69 year- old females (14.3# +/- 2.8#). Avg 7.3# of force w/ L tip pinch w/ pinchometer strength testing which > than 1 SD below the mean for 65-69 year- old females (10.5# +/- 2.4#). Avg 11.5# of force w/ L 3-jaw pinch w/ pinchometer strength testing which is slightly below the mean for 65-69 year- old females (13.7# +/- 3.4#). Aida completed the 9-Hole Peg Test in 21.3 seconds w/ R hand (versus norm 19.5 +/- 2.3 sec) and 25.7 seconds w/ L hand (21.4 +/- 2.7 sec). Patient would likely benefit from outpatient OT services to address strength concerns, ROM, and functional abilities to support Aida's active participation in meaningful activities in a variety of different environments utilizing the left hand. Home Exercise Program Provided Aida w/ firm theraputty and extra firm theraputty for home use; recommended current utilization of blue, firm theraputty. Instructed in care and storage of theraputty. Instructed in exercises to complete with theraputty. Instructed in tendon gliding and finger push-ups as well. Written and visual instructions were provided for these and they will be scanned into electronic medical records. Comment 8 weeks Treatment Frequency Once a Week Therapeutic Contents Active Range of Motion, Adaptive Equipment Education, Client Education,Cognitive Skills Development,Functional Activities,Home Exercise Program,Joint Protection, Manual Therapy,Education, Neurodevelopment Treatment, Neuromuscular Re-Education, Self-Care,Therapeutic Activities,Therapeutic Exercises,Modalities Modalities As Needed,As Prescribed
--- NOTE | 2020-10-27 13:10 | OT.OP.DC ---
Visit Care Team Role Provider Type Paramjit Fenton MD Primary Care Provider Physician Address: [address], [place], [address] Email: [email or web address] Daron Mosqueda DO Attending Provider Non-Staff Referring Provider Address: [address], [address] Email: OT Outpatient OT Outpatient Adult Evaluation Start: 10/09/20 10:26 Freq: Status: Active Protocol: Document 10/09/20 10:26 AMS (Rec: 10/09/20 10:56 AMS [id number]) General Information Session Time Visit Start Time 08:30 Visit Stop Time 09:15 Total Visit Minutes 45 Visit Information Plan of Care Dates 10/09/20-12/04/20 Insurance Information [employer]vantage; pre -auth req thru [employer]; SEE INSURANCE NOTES Setting Treatment Setting Outpatient Care Visit Type Note Type Initial Evaluation Goals Correction Goals Correction Goals 1. Aida will be modified independent with L hand home exercise program utilizing provided written and visual instructions from therapist. 2. Aida will present with increased functional abilities of the L hand; this will be evidenced by verbal report of ability to open items on daily basis with use of the left hand and thus, patient will demonstrate decreased reliance on others to open items. 3. Aida will average 8.1+ or more pounds of force w/ L tip pinch strength testing. Assessment/Plan Assessment Treatment Assessment Aida is a 65 year-old right hand dominant female referred to outpatient OT for left hand strengthening exercises by Daron Mosqueda DO, w/ h/o recent C6- 7 ACDR. PMH: Significant for blood pressure concerns; surgery; mallet injury R 3rd digit Patient Goals: Increase strength of the left hand; address gripping abilities to reduce need for assistance w/ opening items Evaluation Findings: Impaired sensation reported of L thumb , 2nd and 3rd digits which is inconsistent w/ presentation. QuickDASH UE Outcome Measure Score = 20.45. Intrinsic tightness of L hand; decreased tightness of head custodian primarily of the radial side of the hand (2nd and 3rd digits). Avg 43. 0# of force w/ L head custodian w/ dynamometer II strength testing which is slightly below mean for 65-69 year-old females (41.0# +/- 8.2#). Avg 12.3# of force w/ L roberts pinch w/ pinchometer strength testing which is slightly below the mean for 65-69 year- old females (14.3# +/- 2.8#). Avg 7.3# of force w/ L tip pinch w/ pinchometer strength testing which > than 1 SD below the mean for 65-69 year- old females (10.5# +/- 2.4#). Avg 11.5# of force w/ L 3-jaw pinch w/ pinchometer strength testing which is slightly below the mean for 65-69 year- old females (13.7# +/- 3.4#). Aida completed the 9-Hole Peg Test in 21.3 seconds w/ R hand (versus norm 19.5 +/- 2.3 sec) and 25.7 seconds w/ L hand (21.4 +/- 2.7 sec). Patient would likely benefit from outpatient OT services to address strength concerns, ROM, and functional abilities to support Aida's active participation in meaningful activities in a variety of different environments utilizing the left hand. Home Exercise Program Provided Aida w/ firm theraputty and extra firm theraputty for home use; recommended current utilization of blue, firm theraputty. Instructed in care and storage of theraputty. Instructed in exercises to complete with theraputty. Instructed in tendon gliding and finger push-ups as well. Written and visual instructions were provided for these and they will be scanned into electronic medical records. Plan Comment 8 weeks Treatment Frequency Once a Week Therapeutic Contents Active Range of Motion, Adaptive Equipment Education, Client Education,Cognitive Skills Development,Functional Activities,Home Exercise Program,Joint Protection, Manual Therapy,Education, Neurodevelopment Treatment, Neuromuscular Re-Education, Self-Care,Therapeutic Activities,Therapeutic Exercises,Modalities Modalities As Needed,As Prescribed Sensory Assessment Sensory Profile2 Functional Wrist/Hand Scan Hand Side OT Outpatient Treatment Note - Adult Start: 10/09/20 10:26 Freq: Status: Active Protocol: Document 10/27/20 13:02 [facility] (Rec: 10/27/20 13:10 [facility] [id number]) OT Outpatient Adult Treatment Note Session Time Visit Start Time 12:30 Visit Stop Time 13:00 Total Visit Minutes 30 Visit Information Plan of Care Dates 10/09/20-12/04/20 Setting Treatment Setting Outpatient Care Visit Type Note Type Treatment Note General Information General Information Aida is a 65 year-old right hand dominant female referred to outpatient OT for left hand strengthening exercises by Daron Mosqueda, , w/ h/o recent C6- 7 ACDR. PMH: Significant for blood pressure concerns; surgery; mallet injury R 3rd digit - Subjective Identification Type Name Identification Reconciled With Medical Record Observations I have been using this hand more per Aida. Patient Expectation/Goals Increase strength of the left hand - Objective Objective Measurements Please refer to below for progress towards meeting established OT goals. Market Research Coordinator Goals GOALS MET 1. Aida will be modified independent with L hand home exercise program utilizing provided written and visual instructions from therapist. 2. Aida will average 8.1+ or more pounds of force w/ L tip pinch strength testing. GOALS D/C Aida will present with increased functional abilities of the L hand; this will be evidenced by verbal report of ability to open items on daily basis with use of the left hand and thus, patient will demonstrate decreased reliance on others to open items. - Exercises 1 Descriptor HEP/POC. Reviewed HEP. Recommended considering of use of heat to support flexbility /range of motion of digits of the left hand. 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 - Assessment Assessment of Improvement Patient avg 16.5# of force with left roberts pinch (versus initial 12.3# of force); 11.0# of force with left tip pinch (versus initial 7.3# of force) ; and 20.0# of force with left 3-jaw pinch (versus initial 11.5# of force). Thus, meeting established prison goal and indicating increased use of the left hand in day-to-day life. Patient denied attempting to open items/ manage packaging with the left hand with increased reliance on the right hand; recommended that patient consider using the left hand more in these situations in day-to-day life. Patient reported inconsistent execution of tendon glides and use of theraputty; although, she denies questions . Patient did indicate that she might use Whitney to help remind her to complete glides and use theraputty. Recommended also considering use of heat to address stiffness/reduced range of motion of the digits. Patient in agreement to d/c to HEP. - Plan Therapy Recommendations Discharge from Occupational Therapy
== END 2020-10-30 08:34 | disposition home or self-care (01) ==
LOC: OT 12:30
PROVIDERS: PCP Family Medicine; Referring Provider Neurological Surgery; Visit Provider Neurological Surgery
DX: M47.22 Other spondylosis with radiculopathy, cervical region (principal); R53.1 Weakness
CPT/HCPCS: 97110; 97165

== ENCOUNTER → 2020-12-07 09:25 | Outpatient (CLI) | payer OTHER, SELFPAY ==
--- NOTE | 2020-12-07 | DI.RAD.S_ITS ---
PROCEDURE: XR CERVICAL SPINE 2V OR 3V INDICATIONS: Other spondylosis with radiculopathy, cervical reg TECHNIQUE: 3 view(s) of the cervical spine were acquired. COMPARISON: [facility], , XR CERVICAL SPINE 1V, 08/31/2020, 9:18. FINDINGS: Bones: No fractures or dislocations to the C7 level. There is loss of normal cervical lordosis. Multilevel disc space narrowing and endplate osteophyte formation throughout the mid and lower cervical spine. Anterior fusion hardware at C6-C7 is present as well as an interbody device at C6-C7. Facet hypertrophy throughout the mid and lower cervical spine. The lateral masses of C1 appear intact on the odontoid view. No suspicious bony lesions. Soft tissues: No prevertebral soft tissue swelling. IMPRESSION: 1. Postsurgical sequelae. 2. Multilevel degenerative disc and facet disease. Dictated by: Augustine Siddiqi M.D. on 12/07/2020 at 10:20 Approved by: Augustine Siddiqi M.D. on 12/07/2020 at 10:21
== END ==
PROVIDERS: PCP Family Medicine; Referring Provider Neurological Surgery; Visit Provider Neurological Surgery
DX: M47.22 Other spondylosis with radiculopathy, cervical region (principal)
CPT/HCPCS: 72040

== ENCOUNTER → 2021-05-30 10:44 | Outpatient (CLI) | payer OTHER, SELFPAY ==
--- NOTE | 2021-05-30 | DI.RAD.S_ITS ---
PROCEDURE: XR CERVICAL SPINE 1V INDICATIONS: Other spondylosis with radiculopathy, cervical region TECHNIQUE: Single lateral view of the cervical spine acquired. COMPARISON: [facility], , XR CERVICAL SPINE 2V OR 3V, 12/07/2020, 9:25. FINDINGS: Bones: No acute fractures or dislocations to the C7 level. No suspicious bony lesions. Stable postsurgical changes of anterior cervical discectomy and fusion at C6-7. Stable alignment. No evidence for hardware complication. Stable appearance of moderate multilevel cervical spondylosis with degenerative endplate changes and prominent endplate osteophyte formation. No significant disc space loss. Lower cervical facet arthropathy as before. Straightening of cervical lordosis. Soft tissues: No prevertebral soft tissue swelling. IMPRESSION: Cervical spine without acute compression fractures. Stable appearance of prior anterior cervical discectomy and fusion at C6-7. No evidence for hardware complication. Stable appearance of moderate multilevel cervical spondylosis. Mild straightening of normal cervical lordosis likely related to positioning and/or concurrent muscle spasms. Dictated by: Demario Batista M.D. on 05/30/2021 at 11:49 Approved by: Demario Batista M.D. on 05/30/2021 at 11:54
== END ==
PROVIDERS: PCP Family Medicine; Referring Provider Neurological Surgery; Visit Provider Neurological Surgery
DX: M47.22 Other spondylosis with radiculopathy, cervical region (principal); Z98.1 Arthrodesis status
CPT/HCPCS: 72020

== ENCOUNTER → 2021-12-13 13:59 | Outpatient (CLI) | payer OTHER, SELFPAY | PROVIDERS: PCP Family Medicine; Referring Provider Family Medicine; Visit Provider Family Medicine | DX: Z78.0 Asymptomatic menopausal state (principal); Z13.820 Encounter for screening for osteoporosis | CPT/HCPCS: 77080 ==

== ENCOUNTER → 2024-09-14 11:05 | Outpatient (CLI) | payer OTHER, SELFPAY ==
--- NOTE | 2024-09-14 11:58 | DI.RAD.S_ITS ---
PROCEDURE: XR CHEST 2V INDICATIONS: CHEST XRAY TECHNIQUE: 2 views of the chest were acquired. COMPARISON: None. FINDINGS: Surgical changes and devices: Postsurgical changes are noted in lower cervical spine. Lungs and pleura: Lungs are clear. No pleural effusions or pneumothorax. Mediastinum: Mediastinal contours are normal. Heart size is normal. Bones and chest wall: No suspicious bony abnormalities. Soft tissues appear unremarkable. IMPRESSION: No acute cardiopulmonary pathology. Dictated by: Yang Alicia M.D. on 09/14/2024 at 16:51 Approved by: Yang Alicia M.D. on 09/14/2024 at 16:51
== END ==
PROVIDERS: PCP Family Medicine; Referring Provider Family Medicine; Visit Provider Family Medicine
DX: J44.1 Chronic obstructive pulmonary disease with (acute) exacerbation (principal)
CPT/HCPCS: 71046